=== PATIENT | male | born 1985 | race African-American/Black ===

== ENCOUNTER 2020-01-30 11:16 | Emergency (ER) | payer BC ==
[~2020-01-30] VITALS: Ht 162.6 cm; Wt 63.6 kg
[2020-01-30 11:23] VITALS: Ht 162.6 cm; Wt 63.6 kg
[2020-01-30 12:18] LABS: BILIRUBIN NEGATIVE (NEGATIVE); GLUCOSE NEGATIVE (NEGATIVE); KETONE NEGATIVE (NEGATIVE); NITRITE NEGATIVE (NEGATIVE); UROBILINOGEN NORMAL (NORMAL)
[2020-01-30 12:23] LABS: CREATINE KINASE 343 UL (21-232)
[2020-01-30 12:24] LABS: CKMB 1.3 U/L (0.0-3.6)
[2020-01-30 12:30] LABS: HEMATOCRIT 45.1 % (42.0-54.0); HEMOGLOBIN 15.1 g/dL (13.5-17.5); MCHC 33.5 g/dL (31.0-37.0); MCV 86.7 fL (80.0-100.0); MEAN PLATELET VOLUME 9.5 fL (7.4-10.4); PLATELET COUNT 214 10x3/uL (130-400); RDW 12.7 % (11.5-14.5); WBC 2.2 10x3/uL (4.8-10.8)
[2020-01-30 13:47] LABS: ALBUMIN 4.2 g/dL (3.4-5.0); ANION GAP 11.5 mmol/L (8-16); BILIRUBIN - TOTAL 0.79 mg/dL (0.2-1.3); CALCIUM 9.4 mg/dL (8.5-10.1); CARBON DIOXIDE 26.3 mmol/L (21.0-32.0); CREATININE - SERUM 1.3 mg/dL (0.6-1.3); POTASSIUM - SERUM 4.8 mmol/L (3.5-5.1); PROTEIN - SERUM 7.6 g/dL (6.4-8.2)
[2020-01-30] MEDS ORDERED: SUMATRIPTAN SUC25 MG PO (14:07)
[2020-01-30 14:14] VITALS: BP 156/92
[2020-01-30 14:26] LABS: EOSINOPHILS 3 % (0-7); LYMPHOCYTES 41 % (15-50); MONOCYTES 7 % (2-11); NEUTROPHILS 48 % (40-80); PLATELET ESTIMATE NORMAL
== END 2020-01-30 14:15 | disposition home or self-care (01) ==
LOC: D.ER 11:16
PROVIDERS: Family Medicine
DX: G43.909 Migraine, unspecified, not intractable, without status migrainosus (principal)